=== PATIENT | female | born 1940 | race Caucasian/White ===

== ENCOUNTER 2019-05-29 14:24 | Outpatient (CLI) | payer MEDICARE ==
--- NOTE | 2019-05-29 14:55 | RAD ---
PA AND LATERAL VIEWS CHEST: HISTORY: Empyema, pneumonia. FINDINGS: The heart size is borderline. The aorta is tortuous. There is a small right-sided pleural effusion. No pneumothoraces or lobar consolidation are seen. IMPRESSION: Right pleural effusion. POS: [facility]
== END 2019-05-29 14:25 | disposition home or self-care (01) ==
LOC: RAD 14:24
PROVIDERS: ATTEND Thoracic Surgery (Cardiothoracic Vascular Surgery)
DX: J86.9 Pyothorax without fistula (principal); J18.1 Lobar pneumonia, unspecified organism; J90 Pleural effusion, not elsewhere classified
CPT/HCPCS: 71046

== ENCOUNTER 2019-07-29 10:54 | Outpatient (CLI) | payer MEDICARE ==
--- NOTE | 2019-07-29 11:11 | RAD ---
EXAM: Chest 2 views: HISTORY: Dyspnea COMPARISON: 05/29/2019 FINDINGS: There is an enlarged but stable cardiomediastinal silhouette. There is a small right pleural effusion . The bones are unremarkable. IMPRESSION: Cardiomegaly and small right pleural effusion.
== END 2019-07-29 10:55 | disposition home or self-care (01) ==
LOC: RAD 10:54
PROVIDERS: ATTEND Internal Medicine Critical Care Medicine
DX: R06.00 Dyspnea, unspecified (principal); I51.7 Cardiomegaly; J90 Pleural effusion, not elsewhere classified
CPT/HCPCS: 71046